=== PATIENT | male | born 1945 | race Caucasian/White ===

== ENCOUNTER 2023-12-28 20:19 | Outpatient (REF) | payer MEDICARE, SELFPAY ==
[2023-12-28 12:55] LABS: Absolute Eosinophil Count 0.29 10^3/uL (0.0-0.7); Absolute Lymphocyte Count 1.67 10^3/uL (1.2-3.4); Basophils % 0.4; Eosinophils % 1.8; HCT 39.9 % (40.0-50.0); HGB 12.6 g/dL (13.5-17.5); Immature Grans % 0.6; Lymphocytes % 10.3; MCH 27.6 pg (27.0-33.0); MCHC 31.6 % (32.0-36.0); MCV 87 fL (80-95); MPV 11.6 fL (8.0-11.0); Monocytes % 10.6; Neutrophils % 76.3; Platelet Count 245 10^3/uL (130-400); RBC 4.57 10^6/uL (4.36-5.78); RDW 14.9 % (11.8-14.1); RDW-SD 47.3 fL; WBC 16.25 10^3/uL (4.4-10.8)
[2023-12-28 12:56] LABS: Absolute Basophil Count 0.07 10^3/uL (0.0-0.2); Absolute Monocyte Count 1.72 10^3/uL (0.1-0.8)
[2023-12-28 13:05] LABS: ALT 9 U/L (16-63); AST 20 U/L (15-37); Albumin 2.2 g/dL (3.4-5.0); Alkaline Phosphatase 128 U/L (46-116); Anion Gap 10.9 mmol/L (3-11); BUN 22 mg/dL (7-18); Bilirubin, Total 0.4 mg/dL (0.2-1.0); CO2 29.1 mmol/L (21.0-32.0); CREATININE 1.3 mg/dL (0.70-1.30); Calcium 8.7 mg/dL (8.5-10.1); Chloride 103 mmol/L (98-107); Estimated GFR 56.58 (mL/min/1.73m2); Glucose 239 mg/dL (74-106); Sodium 143 mmol/L (136-145); Total Protein 7.4 g/dL (6.4-8.2)
[2023-12-28 13:15] LABS: Diff Comment Diff Reviewed; RBC Morphology Normal
[2023-12-28 19:39] LABS: Bilirubin Negative (Negative); Blood Large (Negative); Clarity Turbid (Clear); Glucose Negative (Negative); Ketones Negative (Negative); Leukocyte Esterase Large (Negative); Nitrite Negative (Negative); Specific Gravity 1.015 (1.005-1.025); Urobilinogen 0.2 mg/dL (Up to 0.2)
[2023-12-28 19:44] LABS: Bacteria Few HPF (Negative); C & S Indicated? C&S Done As Ordered; Casts Negative LPF (Negative); Crystals Negative HPF (Negative); Epithelial Cells Rare HPF (Negative); Mucus Trace (Negative); Other Cells Few Yeast (Negative); RBC >50 HPF (0-2); WBC >50 HPF (0-5)
== END 2023-12-28 20:20 | disposition home or self-care (01) ==
LOC: LBN 20:19
PROVIDERS: PCP Family Medicine; Visit Provider Family Medicine
DX: G20.A1 Parkinson's disease without dyskinesia, without mention of fluctuations (principal); R31.9 Hematuria, unspecified
CPT/HCPCS: 80053; 81003; 81015; 85025; 87086

== ENCOUNTER 2024-01-02 14:13 | Inpatient (IN) | payer OTHER, SELFPAY ==
[2024-01-02] VITALS (94 sets, daily range): BP systolic 57–157; BP diastolic 16–128; PULSE 75–188; RESP 14–38; TEMP 36.4–36.6; O2SAT 95–99
--- NOTE | 2024-01-02 14:00 | RT.EKG_ITS ---
APPROVED REPORT Exam: Resting ECG Reason for Exam: Rapid Heartbeat Patient Location: E HR:142 bpm ECG Measurements Heart Rate 142 AXIS LA 156 P -10 QRSd 128 QRS -36 QT 362 T 98 QTc 556 Conclusion Sinus tachycardia...rate> 99 Left bundle branch block...QRSd>120, broad/notched R afib/flutter, tachy Left [place] LBBB No acute ST changes
--- NOTE | 2024-01-02 14:09 | W.ED.GENAD ---
Discharge Plan Disposition Patient Disposition: Admit to [facility] Condition: Serious Discharge Details Clinical Impression: RAHEEL (acute kidney injury), UTI (urinary tract infection), Septic shock, Atrial fibrillation with RVR Primary Care Provider: John Jhaveri ED Provider: Bryce Zarco [place] Meds and New Rx's Prescriptions: No Action apixaban 5 mg tablet 5 mg PO BID carbidopa-levodopa 10-100 mg tablet 1 tab PO TID Pancreaze 10,500-35,500- 61,500 unit capsule,delayed release(DR/EC) 2 cap PO TID Rx Instructions: administer with meals and/or snacks duloxetine 20 mg capsule,delayed release(DR/EC) 20 mg PO DAILY fexofenadine 60 mg tablet 60 mg PO BID finasteride 5 mg tablet 5 mg PO DAILY insulin glargine 100 unit/mL (3 mL) insulin pen 40 unit subcut DAILY isosorbide mononitrate 30 mg tablet extended release 24 hr 30 mg PO DAILY losartan 25 mg tablet 25 mg PO DAILY pregabalin 300 mg capsule 300 mg PO BID metoprolol succinate 25 mg tablet extended release 24 hr 25 mg PO DAILY amitriptyline 10 mg tablet 10 mg PO DAILY rosuvastatin [Crestor] 40 mg tablet 40 mg PO DAILY sertraline 100 mg tablet 100 mg PO DAILY tamsulosin 0.4 mg capsule 0.4 mg PO DAILY tiotropium bromide 2.5 mcg/actuation mist 2 inh inhalation DAILY HPI General Mode of arrival: EMS. Date/Time Provider Initiated Documentation: 01/02/24 14:48. Limitations to Documentation: altered mental status. Information obtained by: EMS. HPI Narrative: Patient presenting to ED with altered mental status, A-fib with RVR. Patient currently residing at [facility]. EMS initially called transport patient here for lab and x-ray. However on their arrival to the facility he was found to be in rapid A-fib and altered although has a history of confusion and speech difficulties, unclear exactly what his baseline is. He was transferred to the ED. He is able to answer yes/no questions and denies pain or shortness of breath. Related Data Home Medications Medication Instructions Recorded Confirmed amitriptyline 10 mg tablet 10 mg PO DAILY 01/02/24 01/02/24 apixaban 5 mg tablet 5 mg PO BID 01/02/24 01/02/24 carbidopa 10 mg-levodopa 100 mg 1 tab PO TID 01/02/24 01/02/24 tablet duloxetine 20 mg capsule,delayed 20 mg PO DAILY 01/02/24 01/02/24 release fexofenadine 60 mg tablet 60 mg PO BID 01/02/24 01/02/24 finasteride 5 mg tablet 5 mg PO DAILY 01/02/24 01/02/24 insulin glargine 100 unit/mL (3 40 unit subcut DAILY 01/02/24 01/02/24 mL) subcutaneous pen isosorbide mononitrate 30 mg 30 mg PO DAILY 01/02/24 01/02/24 tablet,extended release 24 hr lipase 10,500-protease 2 cap PO TID 01/02/24 01/02/24 35,500-amylase 61,500 unit capsule,delayed rel (Pancreaze) losartan 25 mg tablet 25 mg PO DAILY 01/02/24 01/02/24 metoprolol succinate 25 mg 25 mg PO DAILY 01/02/24 01/02/24 tablet,extended release 24 hr pregabalin 300 mg capsule 300 mg PO BID 01/02/24 01/02/24 rosuvastatin 40 mg tablet (Crestor) 40 mg PO DAILY 01/02/24 01/02/24 sertraline 100 mg tablet 100 mg PO DAILY 01/02/24 01/02/24 tamsulosin 0.4 mg capsule 0.4 mg PO DAILY 01/02/24 01/02/24 tiotropium bromide 2.5 2 inh inhalation DAILY 01/02/24 01/02/24 mcg/actuation mist for inhalation Allergies Allergy/AdvReac Type Severity Reaction Status Date / Time enoxaparin [From Lovenox] Allergy Other (See Verified 01/02/24 14:48 Comment) Review of Systems Unobtainable due to mental status Exam Narrative Exam Narrative: Const: Obese male in NAD but altered. HEENT: NC/AT. Normal facial exam. Eyes: Normal conjunctiva and sclera. Neck: Supple. Trachea midline. Lungs: Normal respiratory effort. Lungs are clear. Cor: Tachy and irregular. GI: Soft. NT/ND. : Chao in place, urine appears cloudy Neuro: Awake, altered, answers yes/no. Cranial nerves II - XII grossly intact. No gross motor or sensory deficit. Ext: No C/C/E. Skin: Cool and dry with coccygeal/buttock ulcer and apparent candidal rash along buttocks and posterior thighs. Medical Decision Making [facility] with rapid A-fib and altered mental status. He was admitted to [facility] December 19 from [facility]. He is not able to provide much of a history. Denies pain or shortness of breath. He is on anticoagulation presumably for A-fib and is also status post TAVR. Initial heart rates in the 140 and initial blood pressure with a systolic greater than 100. Subsequent blood pressures with hypotension. His lungs are relatively clear. His abdomen seems benign. His urine appears very cloudy. Suspect UTI with sepsis. IV fluids ordered. Laboratory studies obtained. Chest x-ray, nasal swab, urinalysis ordered. Lopressor IV for heart rate control if we can get blood pressure a little more reasonable. Called and spoke to the patient's . She confirms DNR/DNI but reports that is not comfort measures only as per the [facility] papers. She and he are fine with fluids, antibiotics, pressors to give him a chance to recover. He reportedly was at [facility] with pneumonia, UTI, RAHEEL. Patient's laboratory studies with a white count of 19.2. Hemoglobin 12.3. Electrolytes are normal. Kidney function is 2 up from 1.3 5 days ago. Liver function is normal. First troponin is negative. Chest x-ray per my read with low lung volumes and underpenetrated. No obvious infiltrate. Radiology read concurs. EKG is rapid A-fib with left bundle branch block, no acute ST changes. Second liter of LR has been ordered. Chao has been clamped and we are waiting for urine specimen. He has not received metoprolol but his heart rate has come down with fluids. At bedside is saying he does have a right ureteral stent in place. His urinalysis is positive for UTI. Because of the report of stent and the possibility of obstruction I did obtain CT of the abdomen and pelvis. also reporting that he may have fallen over at [facility] and she has been trying to get them to scan his head because he is on thinners. He is altered likely from his urosepsis but I will obtain CT head as well. He has received 3 L of LR which is just under his 30 cc/kg bolus. He did receive 1 dose of IV metoprolol. CT of head is negative for bleed. CT of abdomen pelvis shows that the stent is in place. There is a proximal ureteral stone but the kidney appears to be decompressed with minimal hydronephrosis. He has received 2 g of IV ceftriaxone. Blood pressure and heart rate continue to bounce around. Will continue fluids, consider norepi as he has not had a ton of urine output. Definitely should be admitted to the ICU here. Case discussed at length with hospitalist. Lab Data Lab results reviewed: Yes I reviewed the patient's lab results. ECG Data Attestation: I personally reviewed and interpreted this ECG (s) as follows: Prior ECG tracings: not available for review Interpretation: see EKG Quality:SDOH Health Related Social Needs: No Data to Display Critical Care Time Critical Care Time Critical Care Time: Yes Total Critical Care Time: 75 Attestation: Upon my evaluation, this patient had a high probability of imminent or life-threatening deterioration, which required my direct attention, intervention, and personal management. I have personally provided 75 minutes of critical care time exclusive of time spent on separately billable procedures. Time includes review of laboratory data, radiology results, discussion with consultants, and monitoring for potential decompensation. Interventions were performed as documented above. PFSH All Active Problems (Updated 01/02/24 @ 19:22 by Bryce Zarco MD) Atrial fibrillation with RVR (Acute) Septic shock (Acute) UTI (urinary tract infection) (Acute) RAHEEL (acute kidney injury) (Acute) Medical History (Updated 01/02/24 @ 19:22 by Bryce Zarco MD) DVT (deep venous thrombosis) History of nephrolithiasis Atrial fibrillation CAD (coronary artery disease) Diabetes mellitus Parkinson disease Melanoma Surgical History (Updated 01/02/24 @ 15:27 by Bryce Zarco MD) S/P TAVR (transcatheter aortic valve replacement) Social History Smoking/Tobacco Use Status: Unknown Smoking risk assessment performed?: Yes Substance use type: unknown Housing: residential
[2024-01-02 14:39] LABS: Lactate 1.7 mmol/L (0.6-1.4)
[2024-01-02 14:40] LABS: Abs Immature Grans 0.13 10^3/uL (0.0-0.06); Basophils % 0.4; Eosinophils % 1.8; HGB 12.3 g/dL (13.5-17.5); Immature Grans % 0.7; Lymphocytes % 12.1; MCH 27.2 pg (27.0-33.0); MCHC 30.8 % (32.0-36.0); MCV 88 fL (80-95); Monocytes % 7.7; Neutrophils % 77.3; Platelet Count 383 10^3/uL (130-400); RBC 4.53 10^6/uL (4.36-5.78); RDW 14.7 % (11.8-14.1); RDW-SD 47.7 fL; WBC 19.19 10^3/uL (4.4-10.8)
[2024-01-02] MEDS: Lactated Ringers 1,000 ML 1000 ML IV ×3 (14:40→16:20)
--- NOTE | 2024-01-02 14:46 | DI.RAD_ITS ---
Exam(s) XR PORTABLE CHEST AP EXAM: XR PORTABLE CHEST AP CLINICAL HISTORY: AMS TECHNIQUE: 2D digital imaging was performed. COMPARISON: No exams were available for comparison FINDINGS: Exam is limited by under penetration and semi-upright technique. LUNGS: Grossly clear. No pleural abnormality seen. HEART: Enlarged. TAVR. Coronary artery stent. AORTA: Normal diameter. BONES: Unremarkable for age. Soft tissues: Unremarkable. IMPRESSION: No acute findings. DATA REPOSITORY: RADIATION DOSE DELIVERED:
[2024-01-02 14:47] LABS: Absolute Basophil Count 0.08 10^3/uL (0.0-0.2); Absolute Eosinophil Count 0.35 10^3/uL (0.0-0.7); Absolute Lymphocyte Count 2.32 10^3/uL (1.2-3.4); Absolute Monocyte Count 1.48 10^3/uL (0.1-0.8); Absolute Neutrophil Count 14.83 10^3/uL (1.2-6.7)
[2024-01-02 15:01] LABS: ALT 10 U/L (16-63); AST 25 U/L (15-37); Albumin 2.2 g/dL (3.4-5.0); Alkaline Phosphatase 149 U/L (46-116); Anion Gap 8.7 mmol/L (3-11); BUN 35 mg/dL (7-18); Bilirubin, Total 0.4 mg/dL (0.2-1.0); CO2 29.3 mmol/L (21.0-32.0); Calcium 8.8 mg/dL (8.5-10.1); Chloride 105 mmol/L (98-107); Estimated GFR 33.74 (mL/min/1.73m2); Glucose 252 mg/dL (74-106); Magnesium 2.1 mg/dL (1.8-2.4); Potassium 4.1 mmol/L (3.5-5.1); Sodium 143 mmol/L (136-145); Total Protein 7.9 g/dL (6.4-8.2); Troponin I 51 ng/L (< or =60)
[2024-01-02] MEDS: Metoprolol 5 MG/5 ML VIAL IVP (15:17)
[2024-01-02 15:47] LABS: COVID-19 PCR Negative (Negative); Influenza A PCR Negative (Negative); Influenza B PCR Negative (Negative); RSV PCR Negative (Negative)
[2024-01-02 15:59] LABS: Source Nasopharynx
[2024-01-02 16:00] LABS: Bilirubin Small (Negative); Blood Large (Negative); Clarity Cloudy (Clear); Glucose Negative (Negative); Ketones Negative (Negative); Leukocyte Esterase Large (Negative); Nitrite Negative (Negative); Specific Gravity >= 1.030 (1.005-1.025); Urobilinogen 0.2 mg/dL (Up to 0.2); pH 5.5 (5-8)
[2024-01-02 16:05] LABS: Bacteria Moderate HPF (Negative); C & S Indicated? Yes; Casts Negative LPF (Negative); Crystals Negative HPF (Negative); Epithelial Cells Rare HPF (Negative); Mucus Negative (Negative); WBC >50 HPF (0-5)
[2024-01-02] MEDS: cefTRIAXone 2 GM/50 ML BAG IVPB (16:18)
--- NOTE | 2024-01-02 16:30 | DI.CT_ITS ---
Exam(s) CT RENAL COLIC WO EXAM: CT RENAL COLIC WO CLINICAL HISTORY: urosepsis; reported stent. TECHNIQUE: Imaging Protocol: Axial computed tomography images with coronal and sagittal reformatted images were created and reviewed. COMPARISON: CR XR PORTABLE CHEST AP from 01/02/2024 FINDINGS: Exam limited by motion. Lung Bases: Respiratory motion. Dependent changes. Heart is enlarged. TAVR. Coronary artery stent and calcifications. Liver: Normal density. No measurable mass. Gallbladder and biliary tract: No radiodense calculus. No biliary ductal dilation. Pancreas: No abnormal calcifications or inflammatory process. The tail of the pancreas has been res ected. Surgical clips in the vicinity. Spleen: Normal size. Cystic lesion adjacent to fundus of the stomach could represent a gastric diverticulum. Kidneys: Normal size, contour and axis.Right ureteral stent. Mild dilatation of the right collecting system. Stones seen adjacent to upper portion of stent measuring approximately 10 millimeters. Non obstructing stones seen in both kidneys. Mild right perinephric stranding. No masses seen. Adrenal glands: No mass is seen. Lymph nodes: Within normal limits. Vasculature: Abdominal aorta non-dilated. IVC filter. Bladder: Chao catheter within bladder. No stone. Mild no evidence of mass. Bowel: No obstruction. No bowel wall thickening. Appendix normal. Moderate to increased quantity of stool. Peritoneal cavity: No ascites.No free air. No focal collection. No mesenteric inflammatory response. Reproductive organs: Prostate is enlarged. Bones: Degenerative changes in the spine. Soft Tissues: Within normal limits. IMPRESSION: Right ureteral stent. 10 millimeter stone seen adjacent to upper portion of stent mild right hydrone phrosis. Additional nonobstructing stones bilaterally. Findings called to Dr. Zarco of the emergency department. RADIATION DOSE DELIVERED: 2,106.98mGy.cm Total DLP 2,106.98mGy.cm Total DLP DATA REPOSITORY: All CT scans at this facility are submitted to the National Radiology Data Registry (NRDR) Dose Index Registry (DIR) with the [employer] (A[employer]). RADIATION OPTIMIZATION: All CT scans at this facility use at least one of these dose optimization te chniques: automated exposure control; mA and/or kV adjustment per patient size (includes targeted exa ms where dose is matched to clinical indication); or iterative reconstruction.
--- NOTE | 2024-01-02 16:45 | DI.CT_ITS ---
Exam(s) CT HEAD WO EXAM: CT HEAD WO CLINICAL HISTORY: AMS, ? fall, on thinners. TECHNIQUE: Imaging Protocol: Axial computed tomography images with coronal and sagittal reformatted images were created and reviewed COMPARISON: No exams were available for comparison FINDINGS: Exam limited by motion. There is also significant metallic artifact related to cochlear implant. Ventricles and Extra axial spaces: Normal in size and morphology for the patient's age. Hemorrhage: None. Cerebral parenchyma: No evidence of acute infarct or mass. Midline shift: None. Brainstem/Cerebellum: Normal. Calvarium: Normal. Visualized Paranasal sinuses:Clear. Mastoids: Small amount of fluid in inferior right mastoid air cells. Soft Tissues: Chronic appearing defect involving the scalp near the vertex. ORBITS: Unremarkable. PITUITARY: Normal. IMPRESSION: Limited exam due to metallic artifact and motion. No acute intracranial process. RADIATION DOSE DELIVERED: 876mGy.cm Total DLP DATA REPOSITORY: All CT scans at this facility are submitted to the National Radiology Data Registry (NRDR) Dose Index Registry (DIR) with the [employer] (ACR). RADIATION OPTIMIZATION: All CT scans at this facility use at least one of these dose optimization te chniques: automated exposure control; mA and/or kV adjustment per patient size (includes targeted exa ms where dose is matched to clinical indication); or iterative reconstruction.
[2024-01-02 17:33] LABS: Troponin I < 50 ng/L (< or =60)
--- NOTE | 2024-01-02 19:14 | HPE_ITS ---
Date of service: 01/02/24 Time of Service: 19:25 Assessment and Plan Assessment and plan (1) Septic shock: Start date: 01/02/24 Status: Acute Assessment and plan: This is a 78-year-old gentleman with recurrent UTI and now sepsis syndrome with shock most likely with urinary tract infection as source. He had did have recent stenting of his right ureter for obstructing stone and this appears to be stable. He did receive 3 L of lactated Ringer's and will continue normal saline hydration watching closely for fluid overload. His blood pressure has stabilized with fluid resuscitation and he is not requiring pressor agents. He is on Rocephin for treatment of his UTI. Urine cultures and blood cultures are pending. Patient was positive for MRSA with screening elevated appear to be a previous screen for comparison. If he is not responding to initial therapy, vancomycin can be considered for additional coverage. His tachycardia has improved with treatment of his sepsis syndrome and he does have chronic tachycardia with atrial fibrillation. He will be placed on a split dose of oral metoprolol as tolerated and for now will receive IV metoprolol as blood pressure tolerates for better heart rate control. (2) UTI (urinary tract infection): Start date: 01/02/24 Status: Acute Assessment and plan: With obstructing stone status post stenting right ureter and mild right hydronephrosis. He does have recurrent UTIs. Continue IV Rocephin and follow- up cultures adjust medical therapy as indicated. Patient was screened for MRSA and this was positive with MRSA precaution to be taken while hospitalized and in the nursing facility as indicated. Qualifiers: Encounter type: initial encounter Indwelling urinary catheter type: i ndwelling urethral catheter Urinary tract infection type: catheter-associated UTI Qualified Code(s): T83.511A - Infection and inflammatory reaction due to indwelling urethral catheter, initial encounter; N39.0 - Urinary tract infection, site not specified (3) Atrial fibrillation with RVR: Status: Chronic Assessment and plan: Usually on metoprolol succinate low-dose with intermittent IV metoprolol for heart rate control as blood pressure tolerates well for his septic shock. IV fluid resuscitation may help with tachycardia. Continue Eliquis. (4) RAHEEL (acute kidney injury): Start date: 01/02/24 Status: Acute Assessment and plan: Exacerbated with acute process now hopefully responding to IV fluid resuscitation. Trend labs. (5) Type 2 diabetes mellitus: Status: Chronic Assessment and plan: Patient usual outpatient medical therapy will be held while hospitalized and glucometer measurements with short acting insulin coverage using moderate sliding scale. Hold basal insulin for now as well. Qualifiers: Diabetes mellitus complication status: with hyperglycemia Diabetes mellitus rodent exterminator insulin use: with halfway use Qualified Code(s): E11.65 - Type 2 diabetes mellitus with hyperglycemia; Z79.4 - jail (current) use of insulin (6) CAD (coronary artery disease): Assessment and plan: Continue outpatient medical therapy as tolerated. Patient does not appear to have acute decompensation. Qualifiers: Associated angina: without angina Coronary Disease-Associated Artery/Lesion type: [place] artery [place] vs. transplanted heart: [place] heart Qualified Code(s): I25.10 - Atherosclerotic heart disease of [place] coronary artery without angina pectoris (7) Parkinson disease: Assessment and plan: Continue outpatient medical therapy as tolerated. Qualifiers: Dyskinesia presence: with dyskinesia Fluctuating manifestations: w ithout fluctuating manifestations Qualified Code(s): G20.B1 - Parkinson's disease with dyskinesia, without mention of fluctuations History of Present Illness History of Present Illness Chief Complaint: Increased confusion with recent fall and recent hospitalization Narrative: This is a 78-year-old male patient usually goes to the OR and recently was hospitalized in [facility] for pneumonia and UTI with RAHEEL. He does reside at a local senior care and did fall with this facility attempted to have patient have imaging of his head because of increased confusion. During transfer to this facility for imaging and lab, he was diverted to the ED because of tachycardia and unstable mental status status post fall. He has had no fever but has had decreased urinary output and decreased intake since his last hospitalization. He is a DNR/DNI with advanced disease including atrial fibrillation with frequent tachycardia on Eliquis which is prompting imaging of his head because of his fall as well as recent TAVR with history of CAD which has overall been stable. With his decreased intake it appears that he has had a worsening of his chronic kidney disease by labs done in the ED. He had 3 L of lactated Ringer's in the ED for rehydration and will continue on gentle IV hydration. He appears to have a UTI and recently did have a stent in his right ureter because of a stone obstructing causing minimal hydronephrosis. He was given 2 g of Rocephin IV in the ED and this will be continued with cultures have been obtained. His CT of the head was unrevealing for any acute bleed and CT of the abdomen pelvis did reveal his chronic problems with no acute processes noted. Patient does have advanced Parkinson disease and is minimally communicative appearing stiff. He was not able to give further history and that the ED physician did have a long discussion with his during his evaluation. Though the patient is a DNR/DNI, she is not opposed to aggressive treatment of reversible problems with IV hydration and even pressor agents if needed with the patient manifesting sepsis syndrome with hypotension in the ED. If he requires prolonged hospitalization or improved to medical surgical floor care rather than ICU care, he may be transferred to the OR with the OR having no ICU level beds available per discussion with the ED provider. Review of Systems Narrative: 13 point review of systems otherwise unobtainable. See ED note for review with . PFSH All Active Problems (Updated 01/03/24 @ 02:36 by John Rodriguez) Type 2 diabetes mellitus (Chronic) Atrial fibrillation with RVR (Chronic) Septic shock (Acute) UTI (urinary tract infection) (Acute) RAHEEL (acute kidney injury) (Acute) Medical History (Updated 01/03/24 @ 02:36 by John Rodriguez) DVT (deep venous thrombosis) History of nephrolithiasis Atrial fibrillation CAD (coronary artery disease) Diabetes mellitus Parkinson disease Melanoma Surgical History (Updated 01/02/24 @ 15:27 by Bryce Zarco MD) S/P TAVR (transcatheter aortic valve replacement) Social History Smoking/Tobacco Use Status: Unknown Smoking risk assessment performed?: Yes Substance use type: unknown Housing: senior care Meds Allergies and Home Medications Allergies Allergy/AdvReac Type Severity Reaction Status Date / Time enoxaparin [From Lovenox] Allergy Other (See Verified 01/02/24 14:48 Comment) Home Medications Medication Instructions Recorded Confirmed Type amitriptyline 10 mg tablet 10 mg PO DAILY 01/02/24 01/02/24 History apixaban 5 mg tablet 5 mg PO BID 01/02/24 01/02/24 History carbidopa 10 mg-levodopa 100 mg 1 tab PO TID 01/02/24 01/02/24 History tablet duloxetine 20 mg capsule,delayed 20 mg PO DAILY 01/02/24 01/02/24 History release fexofenadine 60 mg tablet 60 mg PO BID 01/02/24 01/02/24 History finasteride 5 mg tablet 5 mg PO DAILY 01/02/24 01/02/24 History insulin glargine 100 unit/mL (3 40 unit subcut DAILY 01/02/24 01/02/24 History mL) subcutaneous pen isosorbide mononitrate 30 mg 30 mg PO DAILY 01/02/24 01/02/24 History tablet,extended release 24 hr lipase 10,500-protease 2 cap PO TID 01/02/24 01/02/24 History 35,500-amylase 61,500 unit capsule,delayed rel (Pancreaze) losartan 25 mg tablet 25 mg PO DAILY 01/02/24 01/02/24 History metoprolol succinate 25 mg 25 mg PO DAILY 01/02/24 01/02/24 History tablet,extended release 24 hr pregabalin 300 mg capsule 300 mg PO BID 01/02/24 01/02/24 History rosuvastatin 40 mg tablet (Crestor) 40 mg PO DAILY 01/02/24 01/02/24 History sertraline 100 mg tablet 100 mg PO DAILY 01/02/24 01/02/24 History tamsulosin 0.4 mg capsule 0.4 mg PO DAILY 01/02/24 01/02/24 History tiotropium bromide 2.5 2 inh inhalation DAILY 01/02/24 01/02/24 History mcg/actuation mist for inhalation Exam Narrative Exam Narrative: General: Patient appears older than stated age, morbidly obese and obtunded lying in bed with his head at a 45 degree angle. He does open his eyes but does not communicate well. He has a masklike facies. He is not oriented to person, place or time. He does appear in moderate distress from his acute disease processes. HEENT: Normocephalic, coarsened facial features, eyes with pupils equal and react to light symmetrically, extraocular movement intact and sclera anicteric. Oropharynx with dry mucosa and poor dentition. Neck: Supple without JVD. Back: Not examined the patient supine. Heart: Regular rate and rhythm with quiet systolic murmur left arm border, no gallops or rubs. Lungs: Poor respiratory effort but essentially clear to auscultation anteriorly. Abdomen: Obese contour, soft and nontender to palpation no palpable hepatosplenomegaly. No guarding or rebound. Bowel sounds positive in all quadrants. Genitalia/rectal: Exam deferred. Patient does have Chao catheter in place. Extremities: Nonpitting edema lower extremities with no clubbing or cyanosis. Fair capillary refill. Skin: Pale, warm and dry. No bruising noted. Neuro: Cranial nerves II through XII appear to be grossly intact with limited cooperation from patient. Masklike facies with increased tone diffusely. Some voluntary movement with no focal motor deficits noted. No resting tremor noted. Psych: Flattened affect and appears acutely delusional with his sepsis syndrome. Manifesting no abnormal thought processes. Remote and recent memory testing not possible. Results Imaging Imaging Studies: EXAM: CT RENAL COLIC WO Date of Exam: 01/02/24 CLINICAL HISTORY: urosepsis; reported stent. TECHNIQUE: Imaging Protocol: Axial computed tomography images with coronal and sagittal reformatted images were created and reviewed. COMPARISON: CR XR PORTABLE CHEST AP from 01/02/2024 FINDINGS: Exam limited by motion. Lung Bases: Respiratory motion. Dependent changes. Heart is enlarged. TAVR. Coronary artery stent and calcifications. Liver: Normal density. No measurable mass. Gallbladder and biliary tract: No radiodense calculus. No biliary ductal dilation. Pancreas: No abnormal calcifications or inflammatory process. The tail of the pancreas has been resected. Surgical clips in the vicinity. Spleen: Normal size. Cystic lesion adjacent to fundus of the stomach could represent a gastric diverticulum. Kidneys: Normal size, contour and axis.Right ureteral stent. Mild dilatation of the right collecting system. Stones seen adjacent to upper portion of stent measuring approximately 10 millimeters. Nonobstructing stones seen in both kidneys. Mild right perinephric stranding. No masses seen. Adrenal glands: No mass is seen. Lymph nodes: Within normal limits. Vasculature: Abdominal aorta non-dilated. IVC filter. Bladder: Chao catheter within bladder. No stone. Mild no evidence of mass. Bowel: No obstruction. No bowel wall thickening. Appendix normal. Moderate to increased quantity of stool. Peritoneal cavity: No ascites.No free air. No focal collection. No mesenteric inflammatory response. Reproductive organs: Prostate is enlarged. Bones: Degenerative changes in the spine. Soft Tissues: Within normal limits. IMPRESSION: Right ureteral stent. 10 millimeter stone seen adjacent to upper portion of stent mild right hydronephrosis. Additional nonobstructing stones bilaterally. EXAM: CT HEAD WO Date of Exam: 01/02/24 CLINICAL HISTORY: AMS, ? fall, on thinners. TECHNIQUE: Imaging Protocol: Axial computed tomography images with coronal and sagittal reformatted images were created and reviewed COMPARISON: No exams were available for comparison FINDINGS: Exam limited by motion. There is also significant metallic artifact related to cochlear implant. Ventricles and Extra axial spaces: Normal in size and morphology for the patient's age. Hemorrhage: None. Cerebral parenchyma: No evidence of acute infarct or mass. Midline shift: None. Brainstem/Cerebellum: Normal. Calvarium: Normal. Visualized Paranasal sinuses:Clear. Mastoids: Small amount of fluid in inferior right mastoid air cells. Soft Tissues: Chronic appearing defect involving the scalp near the vertex. ORBITS: Unremarkable. PITUITARY: Normal. IMPRESSION: Limited exam due to metallic artifact and motion. No acute intracranial process. Labs 01/02/24 14:24 01/02/24 14:24 Labs: Laboratory Results - last 24 hr 01/02/24 01/02/24 01/02/24 14:24 14:53 15:47 WBC 19.19 H RBC 4.53 Hgb 12.3 L Hct 40.0 MCV 88 MCH 27.2 MCHC 30.8 L RDW 14.7 H Plt Count 383 MPV 11.0 Immature Gran % 0.7 Neutrophils % 77.3 Lymphocytes % 12.1 Monocytes % 7.7 Eosinophils % 1.8 Basophils % 0.4 Nucleated RBC % 0.0 Absolute Neutrophils 14.83 H Absolute Lymphocytes 2.32 Absolute Monocytes 1.48 H Absolute Eosinophils 0.35 Absolute Basophils 0.08 VBG Lactate 1.7 H Sodium 143 Potassium 4.1 Chloride 105 Carbon Dioxide 29.3 Anion Gap 8.7 BUN 35 H Creatinine 2.0 H Est GFR (CKD-EPI 2020) 33.74 Glucose 252 H Calcium 8.8 Magnesium 2.1 Total Bilirubin 0.4 AST 25 ALT 10 L Alkaline Phosphatase 149 H Troponin I 51 Total Protein 7.9 Albumin 2.2 L Urine Color Yellow Urine Clarity Cloudy Urine pH 5.5 Ur Specific [place] >= 1.030 H Urine Protein 100 H Urine Ketones Negative Urine Blood Large H Urine Nitrite Negative Urine Bilirubin Small H Urine Urobilinogen 0.2 Ur Leukocyte Esterase Large H Urine RBC 5-10 H Urine WBC >50 H Ur Epithelial Cells Rare Urine Crystals Negative Urine Bacteria Moderate Urine Casts Negative Urine Mucus Negative Ur Culture Indicated? Yes Urine Glucose Negative COVID-19 Source Nasopharynx SARS-CoV-2 (PCR) Negative Influenza Type A (PCR) Negative Influenza Type B (PCR) Negative RSV (PCR) Negative 01/02/24 17:10 WBC RBC Hgb Hct MCV MCH MCHC RDW Plt Count MPV Immature Gran % Neutrophils % Lymphocytes % Monocytes % Eosinophils % Basophils % Nucleated RBC % Absolute Neutrophils Absolute Lymphocytes Absolute Monocytes Absolute Eosinophils Absolute Basophils VBG Lactate Sodium Potassium Chloride Carbon Dioxide Anion Gap BUN Creatinine Est GFR (CKD-EPI 2020) Glucose Calcium Magnesium Total Bilirubin AST ALT Alkaline Phosphatase Troponin I < 50 Total Protein Albumin Urine Color Urine Clarity Urine pH Ur Specific [place] Urine Protein Urine Ketones Urine Blood Urine Nitrite Urine Bilirubin Urine Urobilinogen Ur Leukocyte Esterase Urine RBC Urine WBC Ur Epithelial Cells Urine Crystals Urine Bacteria Urine Casts Urine Mucus Ur Culture Indicated? Urine Glucose COVID-19 Source SARS-CoV-2 (PCR) Influenza Type A (PCR) Influenza Type B (PCR) RSV (PCR) Last Vital Signs Temp 36.4 C L 01/02/24 14:06 Pulse 96 H 01/02/24 18:51 Resp 20 01/02/24 18:51 BP 87/37 L 01/02/24 18:51 Pulse Ox 97 01/02/24 14:45 Time Spent Time spent with Patient: >75 minutes Time was spent: preparing to see the patient(eg.review tests), obtaining and/or reviewing separately otained hiistory, ordering medications,tests, procedures, referring, communicating with other health wound care center consultant, indepentently interpreting results and care coordination
[2024-01-02 21:21] LABS: MRSA PCR Positive (Negative)
--- NOTE | 2024-01-02 22:00 | NUR.NOTE ---
Nursing Note: Bennett appears to be blocked at distal end. Changed bennett bag and flushed catheter. Flow appears to be improved.
[2024-01-02 23:41] LABS: TSH (W/Ref FT4) 4.37 uIU/mL (0.36-3.74)
[2024-01-03] VITALS (48 sets, daily range): BP systolic 95–137; BP diastolic 72–106; PULSE 86–144; RESP 14–28; TEMP 36.4–37.1; O2SAT 92–99
--- NOTE | 2024-01-03 | DI.US_ITS ---
Exam(s) US RENAL EXAM: US RENAL CLINICAL HISTORY: urosepsis; r/o obstruction. TECHNIQUE: [place] scale, color and spectral Doppler were used. COMPARISON: CT CT RENAL COLIC WO from 01/02/2024 FINDINGS: Renal size in cm: Right: 14.3. Left: 11.9. Echogenicity: Normal. Hydronephrosis: Despite the right nephroureteral stent, there is persistent mild dilatation of the ri ght renal pelvis. Cyst or mass: Right renal cysts are seen. The largest measures 2.4 x 1.9 x 2.3 cm. No follow-up is recommended. Nephrolithiasis: There are echogenic foci seen bilaterally suspicious for nonobstructing stones. Other findings: The patient has a right nephroureteral stent and a Chao catheter in place. Bladder:The urinary bladder is nondistended. There is a Chao catheter in place. There is thickenin g of the wall of the urinary bladder. This may be due to nondistention. Ureteral jets: Right: Not visualized on this examination. Left: Not visualized on this examination. Prevoid vol:24 cc Postvoid vol:14 cc Prostate: Not visualized well on this examination. Renal color flow: Symmetric and within normal limits. IMPRESSION: 1. Right nephroureteral stent with mild persistent dilatation of the right renal collecting system. 2. Nonobstructing nephrolithiasis. 3. Incomplete evaluation of the urinary bladder due to poor distention. There is thickening of the w all of the bladder. This may be due to underdistended. Chronic bladder outlet obstruction or cystit is can not be excluded. DATA REPOSITORY:
[2024-01-03 00:03] LABS: FREE T4 0.99 ng/dL (0.76-1.46)
[2024-01-03] MEDS: Insulin Aspart 300 UNITS/3 ML PEN SC ×4 (01:33→18:59)
--- NOTE | 2024-01-03 01:57 | NUR.NOTE ---
Nursing Note: Attempted to give PO medication. It was unclear if pt acknowledged questions but did not appear oriented enough to follow directions at this time.
[2024-01-03] MEDS: Normal Saline 1,000 ML 125 ML IV (05:45)
[2024-01-03 05:51] LABS: HCT 37.8 % (40.0-50.0); HGB 11.7 g/dL (13.5-17.5); MCH 27.1 pg (27.0-33.0); MCV 88 fL (80-95); Platelet Count 334 10^3/uL (130-400); RBC 4.31 10^6/uL (4.36-5.78); RDW 14.7 % (11.8-14.1); RDW-SD 47.8 fL; WBC 17.85 10^3/uL (4.4-10.8)
[2024-01-03 06:15] LABS: Albumin 2.1 g/dL (3.4-5.0); BUN 30 mg/dL (7-18); CREATININE 1.6 mg/dL (0.70-1.30); Glucose 192 mg/dL (74-106); Total Protein 7.5 g/dL (6.4-8.2)
[2024-01-03 06:16] LABS: ALT 10 U/L (16-63); AST 20 U/L (15-37); Alkaline Phosphatase 138 U/L (46-116); Bilirubin, Total 0.4 mg/dL (0.2-1.0); Chloride 105 mmol/L (98-107); Potassium 4.2 mmol/L (3.5-5.1); Sodium 144 mmol/L (136-145)
[2024-01-03] MEDS: Tiotropium Bromide-Respimat 10 PUFF INH 2 PUFF IH (07:54)
[2024-01-03] MEDS: Metoprolol 5 MG/5 ML VIAL IVP ×4 (08:24→19:06)
[2024-01-03] MEDS: Normal Saline Flush 10 ML SYR IVP (10:36)
--- NOTE | 2024-01-03 11:29 | PHA.REVIEW2 ---
Pharmacy Admission Review Admission Clinical Review Admission Pharmacy Review: Septic shock (Acute) UTI (urinary tract infection) (Acute) RAHEEL (acute kidney injury) (Acute) enoxaparin [From Lovenox] Allergy (Verified 01/02/24 14:48) Other (See Comment) Resuscitation Status DNR/DNI Weight 127.142 kg Pharmacy Admission Review Renal Dosing Renal Dosing: BUN 30 mg/dL (7-18) H 01/03/24 05:18 Creatinine 1.6 mg/dL (0.70-1.30) H 01/03/24 05:18 Medications needing adjustments: Intervened (Missing patients height, called nursing this AM to add to patients chart) List of meds needing interventions: Waiting on height, does have an elevated SCr of 1.6mg/dL and BUN of 30 mg/dL. Will adjust med dosing if needed once CrCl can be calculated. Anticoagulation Anticoagulation: Hgb 11.7 g/dL (13.5-17.5) L 01/03/24 05:18 Hct 37.8 % (40.0-50.0) L 01/03/24 05:18 Plt Count 334 10^3/uL (130-400) 01/03/24 05:18 Creatinine 1.6 mg/dL (0.70-1.30) H 01/03/24 05:18 DVT Prophylaxis: Reviewed Medications: Apixaban (5mg PO BID) Relevant Labs Relevant Labs: Sodium 144 mmol/L (136-145) 01/03/24 05:18 Potassium 4.2 mmol/L (3.5-5.1) 01/03/24 05:18 Chloride 105 mmol/L (98-107) 01/03/24 05:18 Magnesium 2.0 mg/dL (1.8-2.4) 01/03/24 05:18 Electrolytes, C-Reactive P, ESR: Reviewed (Hgb decreased from 12.3 to 11.7) DM Control DM Control: Glucose 192 mg/dL (74-106) H 01/03/24 05:18 Finger Stick Blood Glucose 154 0553 DM Control: Reviewed Insulin Dosing, Diabetic Medication: Has order for sliding scale insulin Cardiac Review Cardiac Review: Troponin I < 50 ng/L (< or =60) 01/02/24 17:10 BP, HR, EF%: Reviewed (BP WNL, HR 128) QTc Review QTc: Reviewed (556 on 01/02, current meds okay) IV to PO Switch IV Medications: Reviewed (IV metoprolol PRN) Home Meds Home Med List reviewed: Intervened Relevent Home Meds Not ordered & why?: Lantus (has order for sliding scale insulin while inpatient), losartan and metoprolol (has order for IVP q15m PRN). Per H+P, states patient will be put on split dose of oral metoprolol but the only order as of right now is for the IV PRN. Reached out to provider regarding losartan and metoprolol. Two home meds are non-formulary: fexofenadine 60mg and Pancreaze. Reached out to nursing to see if these can be brought in for the patient from home. Waiting law firm receptionist back. Current Meds Current Medication Order Review: Reviewed Pharmacy Antibiotic Review Pharmacy Antibiotic Activity: C/S review and Reviewed, no change Comments: Patient is on ceftriaxone 2g q24h for UTI, day 1. WBC has decreased from 19.19 to 17.85. Blood and urine cultures are pending.
--- NOTE | 2024-01-03 12:12 | W.PM.PROGNOT ---
Date of Service Date of service: 01/03/24 Time of Service: 12:12 Assessment and Plan Assessment and plan (1) Septic shock: Start date: 01/02/24 Status: Acute Assessment and plan: secondary to urinary tract infection. his bennett catheter was not changed on admission. this has been corrected by ICU nurses. no imaging was done on his upper urinary tract. I have ordred stat US, presumably this is UTI d/t chronic indwelling bennett catheter. continue Rocephin 2 gm IV q24, however I added Diflucan as he is growing Candica albicans; he is also MRSA positive per nasal screen and his urine culture is also showing mixed gram postive organisms so I added vancomycin pending results on his urine and blood cultures. Patient is a [facility] patient and would like him transferred to the [facility] at [facility], they were called last night and did not have any bed capacity. I will ask ICU nurses to call [facility] to see if they have capacity today. (2) UTI (urinary tract infection): Start date: 01/02/24 Status: Acute Assessment and plan: as above Qualifiers: Urinary tract infection type: catheter-associated UTI Indwelling urinary catheter type: indwelling urethral catheter Encounter type: initial encounter Qualified Code(s): T83.511A - Infection and inflammatory reaction due to indwelling urethral catheter, initial encounter; N39.0 - Urinary tract infection, site not specified (3) Atrial fibrillation with RVR: Status: Chronic Assessment and plan: his afib is rapid only d/t the high demand from the sepsis and his NPO status of not getting his metoprolol. now that he is more alert, we can give him his metoprolol. (4) RAHEEL (acute kidney injury): Start date: 01/02/24 Status: Acute Assessment and plan: secondary to sepsis, continue iv fluid hydration, monitor urine output and daily BMP (5) Type 2 diabetes mellitus: Status: Chronic Assessment and plan: monitor glucose either AC/HS if he is able to eat or q6h if NPO, cover w/ moderate dose novolog sliding scale Qualifiers: Diabetes mellitus terminal makeup operator insulin use: with terminal makeup operator use Diabetes mellitus complication status: with hyperglycemia Qualified Code(s): E11.65 - Type 2 diabetes mellitus with hyperglycemia; Z79.4 - long term care phlebotomist (current) use of insulin (6) CAD (coronary artery disease): Assessment and plan: no ischemic symptoms and negative troponin I. continue home meds of metoprolol, now that his BP has stabilized I will resume his losartan and his isosorbide mononitrate tomorrow. Qualifiers: Coronary Disease-Associated Artery/Lesion type: [place] artery [place] vs. transplanted heart: [place] heart Associated angina: without angina Qualified Code(s): I25.10 - Atherosclerotic heart disease of [place] coronary artery without angina pectoris (7) Parkinson disease: Assessment and plan: Continue outpatient medical therapy as tolerated. Qualifiers: Dyskinesia presence: with dyskinesia Fluctuating manifestations: without fluctuating manifestations Qualified Code(s): G20.B1 - Parkinson's disease with dyskinesia, without mention of fluctuations Subjective Subjective Interval history since last seen: 78-year-old male resident of [facility] he has known parkinsonism, coronary artery disease, recurrent UTIs, chronic indwelling Bennett catheter, atrial fibrillation who had a fall at the senior care was sent over to [facility] yesterday for imaging was found to be in rapid atrial fibrillation was sent to the emergency department where he was found to be in septic shock likely source urinary. Unfortunately Bennett catheter was not changed yesterday blood cultures were obtained and urine cultures obtained he was started on broad-spectrum antibiotics including Rocephin 2 g. Bennett catheter has since been changed. He has been n.p.o. since last night because it has been obtunded sepsis. He was not in shock and did not require vasopressors. He has responded well to IV fluids and antibiotics.Was found to be MRSA positive for nares swab. We have added Bactroban for topical treatment. Urine cultures growing mixed gram-positive ama and Anila albicans. Exam Narrative Exam Narrative: Elderly obese white male this morning he was lethargic this afternoon he is now more alert and responsive and following commands. He appears to be in no acute distress he is oriented only to person. Lungs are clear to auscultation Heart is regular rate and rhythm no appreciable murmur rub Abdomen obese soft nondistended nontender Extremities no peripheral cyanosis or edema he has normal pedal pulses I do not find any ulcerations on his feet. Neurologic exam no facial asymmetry no dysarthric speech no focal motor deficits in his arms or legs. Objective Last Vital Signs Temp 36.7 C 01/03/24 03:51 Pulse 128 H 01/03/24 11:13 Resp 23 01/03/24 11:01 BP 137/79 01/03/24 11:13 Pulse Ox 94 01/03/24 11:01 Laboratory Results - last 24 hr 01/02/24 01/02/24 01/02/24 14:24 14:30 14:53 WBC 19.19 H RBC 4.53 Hgb 12.3 L Hct 40.0 MCV 88 MCH 27.2 MCHC 30.8 L RDW 14.7 H Plt Count 383 MPV 11.0 Immature Gran % 0.7 Neutrophils % 77.3 Lymphocytes % 12.1 Monocytes % 7.7 Eosinophils % 1.8 Basophils % 0.4 Nucleated RBC % 0.0 Absolute Neutrophils 14.83 H Absolute Lymphocytes 2.32 Absolute Monocytes 1.48 H Absolute Eosinophils 0.35 Absolute Basophils 0.08 VBG Lactate 1.7 H Sodium 143 Potassium 4.1 Chloride 105 Carbon Dioxide 29.3 Anion Gap 8.7 BUN 35 H Creatinine 2.0 H Est GFR (CKD-EPI 2020) 33.74 Glucose 252 H Calcium 8.8 Magnesium 2.1 Total Bilirubin 0.4 AST 25 ALT 10 L Alkaline Phosphatase 149 H Troponin I 51 Total Protein 7.9 Albumin 2.2 L TSH 4.37 H Free T4 0.99 Urine Color Urine Clarity Urine pH Ur Specific [place] Urine Protein Urine Ketones Urine Blood Urine Nitrite Urine Bilirubin Urine Urobilinogen Ur Leukocyte Esterase Urine RBC Urine WBC Ur Epithelial Cells Urine Crystals Urine Bacteria Urine Casts Urine Mucus Ur Culture Indicated? Urine Glucose COVID-19 Source Nasopharynx SARS-CoV-2 (PCR) Negative Influenza Type A (PCR) Negative Influenza Type B (PCR) Negative RSV (PCR) Negative MRSA (TEM-PCR) 01/02/24 01/02/24 01/02/24 15:47 17:10 19:57 WBC RBC Hgb Hct MCV MCH MCHC RDW Plt Count MPV Immature Gran % Neutrophils % Lymphocytes % Monocytes % Eosinophils % Basophils % Nucleated RBC % Absolute Neutrophils Absolute Lymphocytes Absolute Monocytes Absolute Eosinophils Absolute Basophils VBG Lactate Sodium Potassium Chloride Carbon Dioxide Anion Gap BUN Creatinine Est GFR (CKD-EPI 2020) Glucose Calcium Magnesium Total Bilirubin AST ALT Alkaline Phosphatase Troponin I < 50 Total Protein Albumin TSH Free T4 Urine Color Yellow Urine Clarity Cloudy Urine pH 5.5 Ur Specific [place] >= 1.030 H Urine Protein 100 H Urine Ketones Negative Urine Blood Large H Urine Nitrite Negative Urine Bilirubin Small H Urine Urobilinogen 0.2 Ur Leukocyte Esterase Large H Urine RBC 5-10 H Urine WBC >50 H Ur Epithelial Cells Rare Urine Crystals Negative Urine Bacteria Moderate Urine Casts Negative Urine Mucus Negative Ur Culture Indicated? Yes Urine Glucose Negative COVID-19 Source SARS-CoV-2 (PCR) Influenza Type A (PCR) Influenza Type B (PCR) RSV (PCR) MRSA (TEM-PCR) Positive A 01/03/24 05:18 WBC 17.85 H RBC 4.31 L Hgb 11.7 L Hct 37.8 L MCV 88 MCH 27.1 MCHC 31.0 L RDW 14.7 H Plt Count 334 MPV 11.0 Immature Gran % Neutrophils % Lymphocytes % Monocytes % Eosinophils % Basophils % Nucleated RBC % Absolute Neutrophils Absolute Lymphocytes Absolute Monocytes Absolute Eosinophils Absolute Basophils VBG Lactate Sodium 144 Potassium 4.2 Chloride 105 Carbon Dioxide 29.0 Anion Gap 10.0 BUN 30 H Creatinine 1.6 H Est GFR (CKD-EPI 2020) 44.10 Glucose 192 H Calcium 9.0 Magnesium 2.0 Total Bilirubin 0.4 AST 20 ALT 10 L Alkaline Phosphatase 138 H Troponin I Total Protein 7.5 Albumin 2.1 L TSH Free T4 Urine Color Urine Clarity Urine pH Ur Specific [place] Urine Protein Urine Ketones Urine Blood Urine Nitrite Urine Bilirubin Urine Urobilinogen Ur Leukocyte Esterase Urine RBC Urine WBC Ur Epithelial Cells Urine Crystals Urine Bacteria Urine Casts Urine Mucus Ur Culture Indicated? Urine Glucose COVID-19 Source SARS-CoV-2 (PCR) Influenza Type A (PCR) Influenza Type B (PCR) RSV (PCR) MRSA (TEM-PCR) Time Spent with Patient Time Spent with Patient: 35-49 minutes Time was spent: preparing to see the patient(eg.review tests), ordering medications,tests, procedures, referring, communicating with other health animal care worker (Dr. Rodriguez), indepentently interpreting results, counseling the patient (patient's ) and care coordination
--- NOTE | 2024-01-03 13:18 | PDOC.CMIN ---
Date of service: 01/03/24 Time of Service: 13:18 Care Management Initial Assmt Initial Assessment REASON FOR HOSPITALIZATION:: sepsis, RAHEEL PREVIOUS FUNCTIONAL STATUS/SOCIAL/FAMILY SUPPORTS:: Patrick was admitted from [facility]. He was transferred there for short term rehab following a hospital stay in [place], [place]. Patrick is and lives in [facility] with his Fozia. Between them they have 6 children; some are close and supportive, others are not. Patrick had Parkinson's Disease and had been falling at home prior to his stay at [facility]. He uses a walker for ambulatory assistance. He had been receiving home health services for nursing and PT but hey were discontinued shortly before his hospitalization. Patrick is 100% [facility] connected and Kari would like him transferred to [place] as soon as a bed is available. Per Kari, he is first on the list. CURRENT FUNCTIONAL STATUS:: Patrick was lying in bed in the ICU when CM met with him. He was not able to engage in meaningful conversation with CM. CM did speak to his Kari who shared some of Patrick's history. She reported that he was diagnosed with Parkinson's Disease about 10 years ago but had essential tremors for many years before that. He also has diabetes and is now showing signs of dementia. Kari informed CM that recently Patrick had been complaining of vertigo and had been using his walker more frequently. She expressed a desire to have Patrick transferred to the [facility] at [facility] [[email or web address]], which was relayed by CM to the provider. There were no beds available last evening when he was admitted. ADVANCE DIRECTIVES:: not on file Has patient been provided with info about the portal/API?: Yes Did the patient sign up for the portal?: No CODE STATUS:: DNR/DNI INSURANCE COVERAGE / FINANCIAL ISSUES:: VA primary with [facility] Medicare replacement as secondary CURRENT HOME/COMMUNITY SERVICES/EQUIPMENT:: currently at longterm facility PRIMARY CARE PHYSICIAN:: John Jhaveri POTENTIAL DISCHARGE NEEDS:: return to [facility] vs transfer to [facility] [[email or web address] or [facility] PATIENT/FAMILY EDUCATION NEEDS:: Review of discharge instructions, limitations, follow up plan, discuss Ask Me Three ANTICIPATED BARRIERS TO DISCHARGE:: bed availability TRANSPORTATION:: via facility wheelchair van PLAN:: Anticipate Patrick will either return to [facility] when medically stable or be transferred to [facility] or [facility], if medically unstable. CM will follow and continue to assess for discharge planning concerns. PFSH All Active Problems (Updated 01/03/24 @ 02:36 by John Rodriguez) Type 2 diabetes mellitus (Chronic) Atrial fibrillation with RVR (Chronic) Septic shock (Acute) UTI (urinary tract infection) (Acute) RAHEEL (acute kidney injury) (Acute) Medical History (Updated 01/03/24 @ 02:36 by John Rodriguez) DVT (deep venous thrombosis) History of nephrolithiasis Atrial fibrillation CAD (coronary artery disease) Diabetes mellitus Parkinson disease Melanoma Surgical History (Updated 01/02/24 @ 15:27 by Bryce Zarco MD) S/P TAVR (transcatheter aortic valve replacement) Social History Smoking/Tobacco Use Status: Unknown Smoking risk assessment performed?: Yes Substance use type: unknown Housing: prison SDOH(Care Management) Screening Will the Patient Participate in the Screening?: Unable to obtain
[2024-01-03] MEDS: Mupirocin 2% Oint. 22 GM TUBE TP (14:43)
[2024-01-03] MEDS: Lidocaine 2% Jelly 6 ML SYR (15:39)
[2024-01-03] MEDS: LORazepam 2 MG/ML VIAL 0.5 MG IVP (17:27)
[2024-01-03] MEDS: cefTRIAXone 2 GM/50 ML BAG IVPB (17:28)
[2024-01-03] MEDS: VANCOMYCIN/WATER (PEG) 2 GM/400 ML BAG IVPB (18:59)
--- NOTE | 2024-01-03 20:28 | RESPIRATORY ---
Family member has brought patient's HU called [employer] has Auto-CPAP min 13 and Max. 20 cm H2O at beside. RT has inspected and it is in good condition to go. DME is unknown at this time.
[2024-01-04] VITALS (61 sets, daily range): BP systolic 94–165; BP diastolic 62–133; PULSE 49–150; RESP 12–35; TEMP 36.2–36.7; O2SAT 82–113
[2024-01-04] MEDS: Insulin Aspart 300 UNITS/3 ML PEN SC ×4 (00:31→18:46)
[2024-01-04] MEDS: Normal Saline 1,000 ML 125 ML IV (03:45)
[2024-01-04 04:57] LABS: Vancomycin, Random 21.7 ug/mL
[2024-01-04 07:40] LABS: Vancomycin, Random 17.4 ug/mL
[2024-01-04] MEDS: Tiotropium Bromide-Respimat 10 PUFF INH 2 PUFF IH (07:56)
[2024-01-04] MEDS: DULoxetine 20 MG CAP PO (08:08)
[2024-01-04] MEDS: Normal Saline Flush 10 ML SYR IVP ×2 (08:08→21:46)
[2024-01-04] MEDS: Isosorbide Mononitrate 30 MG TABCR PO (08:09)
[2024-01-04] MEDS: Pregabalin 100 MG CAP 300 MG PO (08:09)
[2024-01-04] MEDS: Sertraline 100 MG TAB PO (08:09)
[2024-01-04] MEDS: Tamsulosin 0.4 MG CAPCR PO (08:09)
[2024-01-04] MEDS: Apixaban 5 MG TAB PO ×2 (08:09→21:45)
[2024-01-04] MEDS: Creon, Lipase 24,000 CAPCR 2 CAP PO ×2 (08:09→14:14)
[2024-01-04] MEDS: Finasteride 5 MG TAB PO (08:09)
[2024-01-04] MEDS: VANCOMYCIN/WATER (PEG) 1 GM/200 ML BAG IV (09:03)
[2024-01-04] MEDS: Metoprolol 12.5 MG TAB PO ×2 (10:26→12:50)
--- NOTE | 2024-01-04 10:48 | CMPROGNOTE_ITS ---
Date of service: 01/04/24 Time of Service: 10:48 Care Management Progress Note Progress Note Text Progress Note Text: S/O: Patrick was lying in bed when CM met with him; he was unable to engage in the conversation, although his and son were present. CM discussed attempts made to contact the transfer center today, as they have requested transfer to the [place]. Per family he is 100% service connected, and receives all of his care at the [place]. They provided contact information for his Oncologist at the [place]; Ailyn Salinas ([phone]), and his VA nonfarm animal caretaker, Carmen Hernández ([phone]). CM will relay this information to the provider. CM discussed system barriers, as the route for transfer is through the transfer center. CM will continue to attempt to reach the transfer center at the [place], as requested. CM discussed discharge considerations; Fozia and her son identified [facility] and [facility] are two [place] contracted facilities that they would like referrals to be sent to. CM explained that referrals can be sent, but if there is no bed offer when he is medically ready for discharge, he will return to [facility], unless he is able to return home. Fozia expressed understanding, and does not feel that he could come home in his current condition. Referrals will be sent once he is able to be evaluated by PT. CM will continue to follow. A: Patrick is a 78 year old male admitted to [facility] on 01/02/24 for septic shock. P: Anticipate Patrick will either return to [facility] when medically stable or be transferred to [facility] or [facility], if medically unstable. CM will follow and continue to assess for discharge planning concerns. SDOH(Care Management) Screening Will the Patient Participate in the Screening?: Unable to obtain
--- NOTE | 2024-01-04 11:58 | W.PM.PROGNOT ---
Date of Service Date of service: 01/04/24 Time of Service: 11:58 Assessment and Plan Assessment and plan (1) Septic shock: Start date: 01/02/24 Status: Acute Assessment and plan: Presumed source is urinary tract infection as he had recent instrumentation including right ureteral stent. So far blood cultures no growth to date. Urine culture growing Anila albicans. Patient remains on Rocephin 2 g IV daily along with Diflucan. Vancomycin has been discontinued as there is no evidence for systemic staph infection. He is colonized with MRSA and is currently on mupirocin ointment to nares and finger tips Although patient is hemodynamically stable and has not required vasopressors he does require more aggressive treatment of his atrial fibrillation rate and therefore will remain in the intensive care unit for diltiazem IV. Critical care time spent interviewing and examining the patient, reviewing studies, discussing case with patient's nurse and consulting physicians was 45 minutes (2) UTI (urinary tract infection): Start date: 01/02/24 Status: Acute Assessment and plan: as above Qualifiers: Urinary tract infection type: catheter-associated UTI Indwelling urinary catheter type: indwelling urethral catheter Encounter type: initial encounter Qualified Code(s): T83.511A - Infection and inflammatory reaction due to indwelling urethral catheter, initial encounter; N39.0 - Urinary tract infection, site not specified (3) Atrial fibrillation with RVR: Status: Chronic Assessment and plan: uncontrolled. begin diltiazem drip and adjust his po lopressor dose; continue apixaban (4) RAHEEL (acute kidney injury): Start date: 01/02/24 Status: Acute Assessment and plan: 2nd to sepsis, improivng w/ iv hydration. monitor urine output, daily BMP (5) Type 2 diabetes mellitus: Status: Chronic Assessment and plan: Monitor blood sugars ACHS cover with sliding scale insulin and basal insulin. Qualifiers: Diabetes mellitus [facility] insulin use: with [facility] use Diabetes mellitus complication status: with hyperglycemia Qualified Code(s): E11.65 - Type 2 diabetes mellitus with hyperglycemia; Z79.4 - building coordinator (current) use of insulin (6) CAD (coronary artery disease): Assessment and plan: no ischemic symptoms and negative troponin I. continue home meds of metoprolol, now that his BP has stabilized isosorbide mononitrate and losartan restarted Qualifiers: Coronary Disease-Associated Artery/Lesion type: [place] artery [place] vs. transplanted heart: [place] heart Associated angina: without angina Qualified Code(s): I25.10 - Atherosclerotic heart disease of [place] coronary artery without angina pectoris (7) Parkinson disease: Assessment and plan: Continue outpatient medical therapy as tolerated. Qualifiers: Dyskinesia presence: with dyskinesia Fluctuating manifestations: without fluctuating manifestations Qualified Code(s): G20.B1 - Parkinson's disease with dyskinesia, without mention of fluctuations Subjective Subjective Interval history since last seen: Patrick is a little more somnolent this morning. He apparently was medicated last night for agitation. I discussed his case with his family. Apparently he had ureteral stent placed couple days before he was admitted to [facility] (this was done at [facility], [place], [place]). I spoke w/ his son, who informed me that he and his brother have noticed some cognitive decline since last August that was signifcant including the patient not recalling the name of one of his grandson's. But otherwise Patrick had been doing well at home and able to recognize family members faces, converse with people and interact appropriately. His would like him to be transferred to [facility]. Trina, post acute care registered nurse has placed calls to [facility] and could not get through the tranfer center but she did leave message w/ one of the care managers at [facility]. When Patrick is awake he does not seem to be in any pain and is not dyspneic. Exam Narrative Exam Narrative: Obese male who is somnolent but awakens easily. He opens his eyes smiles his son and . But does not remain engaged in conversation. No facial asymmetry, speech is somewhat thick but when I have repeated him self he is able to make his words understood. Neck is supple no JVD Lungs are clear to auscultation Heart is irregular irregular and tachycardic rhythm appears to be atrial fibrillation at a rapid rate in the 140s. Abdomen is obese soft and nontender he has scars from previous laparotomy wounds that are well-healed. Lower extremities no peripheral cyanosis or edema Objective Last Vital Signs Temp 36.2 C L 01/04/24 08:30 Pulse 136 H 01/04/24 09:02 Resp 12 01/04/24 09:00 BP 140/62 01/04/24 09:02 Pulse Ox 82 L 01/04/24 09:02 Laboratory Results - last 24 hr 01/04/24 01/04/24 04:28 07:05 Random Vancomycin 21.7 17.4 Time Spent with Patient Time Spent with Patient: 35-49 minutes Time was spent: preparing to see the patient(eg.review tests), ordering medications,tests, procedures, referring, communicating with other health behavioral health care coordinator, indepentently interpreting results, counseling the patient (Including and son) and care coordination
[2024-01-04] MEDS: Lactated Ringers 1,000 ML 125 ML IV ×2 (12:40→20:42)
[2024-01-04] MEDS: Mupirocin 2% Oint. 22 GM TUBE TP ×2 (12:49→21:46)
[2024-01-04] MEDS: dilTIAZem 25 MG/5 ML VIAL 20 MG IVP (12:50)
[2024-01-04] MEDS: dilTIAZem 125 MG in Normal Saline 100 ML IV (12:56)
--- NOTE | 2024-01-04 15:01 | CHAPLAIN ---
I visited with Patrick and his , Kari, and one of his sons(?). Patrick was trying to get the blood pressure cuff off and Kari said he's been planning his great escape. Patrick spoke a bit, but it was difficult to understand what he said. According to Care Management notes, he [facility], and Kari would like him to be transferred to the [facility] in [facility]. I explained my role and offered support.
[2024-01-04] MEDS: Metoprolol 12.5 MG TAB 25 MG PO (17:24)
[2024-01-04] MEDS: cefTRIAXone 2 GM/50 ML BAG IVPB (17:24)
[2024-01-04] MEDS: Amitriptyline 10 MG TAB PO (21:45)
[2024-01-05] VITALS (43 sets, daily range): BP systolic 94–130; BP diastolic 48–111; PULSE 49–145; RESP 13–30; TEMP 36–36.2; O2SAT 92–98
[2024-01-05] MEDS: Insulin Aspart 300 UNITS/3 ML PEN SC ×3 (01:07→11:45)
[2024-01-05] MEDS: Metoprolol 12.5 MG TAB 25 MG PO ×3 (01:08→15:47)
[2024-01-05] MEDS: Lactated Ringers 1,000 ML 125 ML IV (04:18)
[2024-01-05 06:16] LABS: Abs Immature Grans 0.11 10^3/uL (0.0-0.06); Absolute Eosinophil Count 0.25 10^3/uL (0.0-0.7); Absolute Lymphocyte Count 1.59 10^3/uL (1.2-3.4); Absolute Monocyte Count 1.13 10^3/uL (0.1-0.8); Basophils % 0.4; Eosinophils % 1.6; HCT 38.4 % (40.0-50.0); Immature Grans % 0.7; Lymphocytes % 10.1; MCH 27.2 pg (27.0-33.0); MCHC 31.3 % (32.0-36.0); MCV 87 fL (80-95); MPV 11.3 fL (8.0-11.0); Monocytes % 7.2; Platelet Count 300 10^3/uL (130-400); RBC 4.41 10^6/uL (4.36-5.78); RDW 14.8 % (11.8-14.1); RDW-SD 47.6 fL; WBC 15.75 10^3/uL (4.4-10.8)
[2024-01-05 06:22] LABS: Absolute Basophil Count 0.06 10^3/uL (0.0-0.2)
[2024-01-05 06:26] LABS: AST 17 U/L (15-37); Albumin 1.8 g/dL (3.4-5.0); Alkaline Phosphatase 152 U/L (46-116); Anion Gap 11.2 mmol/L (3-11); BUN 28 mg/dL (7-18); Bilirubin, Total 0.3 mg/dL (0.2-1.0); CO2 24.8 mmol/L (21.0-32.0); CREATININE 1.6 mg/dL (0.70-1.30); Calcium 8.7 mg/dL (8.5-10.1); Chloride 105 mmol/L (98-107); Glucose 237 mg/dL (74-106); Potassium 4.3 mmol/L (3.5-5.1); Sodium 141 mmol/L (136-145); Total Protein 7.1 g/dL (6.4-8.2)
[2024-01-05 06:37] LABS: ALT 6 U/L (16-63)
[2024-01-05 06:46] LABS: Procalcitonin 0.2 ng/mL
[2024-01-05] MEDS: Tiotropium Bromide-Respimat 10 PUFF INH 2 PUFF IH (08:23)
[2024-01-05] MEDS: Isosorbide Mononitrate 30 MG TABCR PO (08:29)
[2024-01-05] MEDS: Pregabalin 50 MG CAP 150 MG PO (08:31)
[2024-01-05] MEDS: Sertraline 100 MG TAB PO (08:32)
[2024-01-05] MEDS: Apixaban 5 MG TAB PO (08:33)
[2024-01-05] MEDS: DULoxetine 20 MG CAP PO (08:33)
[2024-01-05] MEDS: Finasteride 5 MG TAB PO (08:34)
[2024-01-05] MEDS: Creon, Lipase 24,000 CAPCR 2 CAP PO (08:36)
[2024-01-05] MEDS: Tamsulosin 0.4 MG CAPCR PO (08:36)
--- NOTE | 2024-01-05 08:42 | NUR.NOTE ---
RN calls pharmacy for delivery of Diltiazem so that drip can be restarted. Heart rate is fluctuating from 120-140s.Nursing Note:
--- NOTE | 2024-01-05 09:28 | IN_ITS ---
PT Notes Visit Reasons: Septic Shock Inpatient Physical Therapy Evaluation Date: 01/05/24 Referring Doctor: Dr. Jones PT Orders: PT CONSULT: extended stay, weakness, exacerbation of chronic condition Precautions: Droplet Patient Profile/Admitting Diagnosis: Patrick was admitted 01/02/24 from [facility]. He was transferred there for short term rehab following a hospital stay in [place], [place]. He presented to ED after a fall at rehab, and was admitted to ICU with septic shock, UTI and afib. Social History/Home Situation: Patrick is and lives in [facility] with his Fozia. Between them they have 6 children; some are close and supportive, others are not. Patrick has Parkinson's Disease and had been falling at home prior to his stay at [facility]. He uses a walker for ambulatory assistance. He had been receiving home health services for nursing and PT but they were discontinued shortly before his hospitalization. Equipment Owned/DME: unable to determine Subjective: Patrick is alert at time of consultation, but history is difficult to obtain due to garbled speech. Does report back pain from surgery 2 days ago. Objective: General Observation: Resting in bed with IV in RUE, catheter, telemetry and intermittent compression to bilat LEs. Mental Status: Alert. ? orientation; difficult to assess due to speech impairments. Able to follow simple commands with visual and tactile cues. Pain: unable to quantify. Reports back pain, worse with movement ROM: Right Upper Extremity: WFL. Demonstrates full shoulder flexion, full elbow motion. Left Upper Extremity: WFL. Demonstrates full shoulder flexion, full elbow motion. Right Lower Extremity: Hip flexion allows 60* in supine assessment. Knee motion 0-90*. Ankle motion WFL. Left Lower Extremity: Hip flexion allows 80* in supine assessment. Knee motion 0-90*. Ankle motion WFL. Strength: Right Upper Extremity: Shoulder flexion 3/5 or greater. Biceps 4/5. Triceps 4- /5. Left Upper Extremity: Shoulder flexion 3/5 or greater. Biceps 4+/5. Triceps 4+/5. Right Lower Extremity: Hip flexion 3-/5. Quads 3/5 or greater. Ankle DF 3/5 or greater. Left Lower Extremity: Hip flexion 3-/5. Quads 3/5 or greater. Ankle DF 3/5 or greater. Bed Mobility/Transfers: dependent for all bed mobility supine-sit: able to perform partial transfer with max A x 2. Discontinued due to increasing back pain. Patient able to participate initially, but as he approaches sitting position, has increasing pain. Requires max A x 2 to return to supine, then max A x 2 to scoot in bed. Gait: unable Balance: Static Sitting: unable Dynamic Sitting: unable Static Standing: unable Dynamic Standing: unable Special Tests: Mobility Limitations Standardized Measure [facility] AM-PAC 6 clicks Basic Mobility Inpatient Short Form: Raw Score: 7 CMS Score: 92% impairment Informed Consent/Education: Patient instructed in purpose of PT consult and plan of care. Treatment: Initial Evaluation (27574) Therapeutic Exercises ([id number]) Attempted instruction in bed exercises. Patient able to complete ankle pumps x 10, then falls asleep during completion. Easily aroused and instructed in quad sets, but unable to complete due to sleepiness. Assessment: Patient is a 78 year old male referred to physical therapy services with the diagnosis of weakness with extended hospital stay. Patient presents with severe mobility impairments. He has significant pain with attempts to transfer today, and limited participation in bed exercises due to fatigue. He requires skilled PT intervention to maximize participation in transfers and imparove overall mobility. Anticipate transition back to SNF once medically stable due to the severity of patient's mobility impairments. He currently demonstrates the following impairment level findings: 1. decreased LE strength 2. back pain 3. decreased activity tolerance Impairments are contributing to the following functional limitations: 1. unable to transfer supine -sit independently 2. unable to ambulate 3. unable to tolerate strengthening activities to facilitate improved LE strength and ease of transfers 4. unable to stand Patient is assessed a Moderate [id number] complexity based on the following: History: Patrick is a 78 year old male with chronic mobility impairments, hospitalized in ICU setting for management of septic shock and UTI, which were diagnosed after a fall at SNF. He has a history of falls and underlying DM and PD as complicating factors. Examination: functional limitations as noted above Presentation: evolving Decision Making: moderate complexity Goals: Goals X1 week 1. Supine-Sit : min A x 1 2. Sit-Supine : min A x 1 3. Sit-Stand : min A x 1 4. Stand-Sit : min A x 1 5. Bed-Chair : min A x 1 with FWW 6. Chair-Bed : min A x 1 with FWW 7. Gait : min A x 1 with FWW x 20' Plan of Care/Treatment Plan: 1-2x/day, 7 days/week x 1 week. Plan of care has been reviewed with the ELECTRICIAN TECHNICIAN providing the service under Physical Therapy direction. Initiate Physical Therapy intervention for strengthening, bed mobility, transfers, gait, stairs, balance training, use of assistive device. DISCHARGE RECOMMENDATIONS: SNF for continued rehabilitation TREATMENT CODE/TIME: (45414) Myranda Jalloh, PT, DPT [facility] All Active Problems (Updated 01/03/24 @ 02:36 by John Rodriguez) Type 2 diabetes mellitus (Chronic) Atrial fibrillation with RVR (Chronic) Septic shock (Acute) UTI (urinary tract infection) (Acute) RAHEEL (acute kidney injury) (Acute) Medical History (Updated 01/03/24 @ 02:36 by John Rodriguez) DVT (deep venous thrombosis) History of nephrolithiasis Atrial fibrillation CAD (coronary artery disease) Diabetes mellitus Parkinson disease Melanoma Surgical History (Updated 01/02/24 @ 15:27 by Bryce Zarco MD) S/P TAVR (transcatheter aortic valve replacement)
[2024-01-05] MEDS: dilTIAZem 60 MG TAB PO ×2 (09:56→14:29)
[2024-01-05] MEDS: dilTIAZem 25 MG/5 ML VIAL 20 MG IVP (09:58)
[2024-01-05] MEDS: Normal Saline Flush 10 ML SYR IVP (10:04)
[2024-01-05] MEDS: Mupirocin 2% Oint. 22 GM TUBE TP ×2 (11:28→13:49)
--- NOTE | 2024-01-05 12:26 | W.PM.PROGNOT ---
Date of Service Date of service: 01/05/24 Time of Service: 12:26 Assessment and Plan Assessment and plan (1) Septic shock: Start date: 01/02/24 Status: Acute Assessment and plan: Presumed source is urinary tract infection as he had recent instrumentation including right ureteral stent. So far blood cultures no growth to date. Urine culture growing Anila albicans. Patient remains on Rocephin 2 g IV daily along with Diflucan. Vancomycin has been discontinued as there is no evidence for systemic staph infection. He is colonized with MRSA and is currently on mupirocin ointment to nares and finger tips Although patient is hemodynamically stable and has not required vasopressors he does require more aggressive treatment of his atrial fibrillation rate and therefore will remain in the intensive care unit for diltiazem IV. Patient will remain in ICU while we workup his dysarthric speech and control his atrial fibrillation rate. I will ask for an RN IV THERAPY consult in addition to his current physical therapy consult. Per nursing staff he had no trouble swallowing his pills. We will obtain a CT scan of his head to see if there has been any job change crew member his admission CT scan. He has an implanted cochlear implant which may prevent us from getting an MRI scan on Sunday. Critical care time spent interviewing and examining the patient, reviewing studies, discussing case with patient's nurse and consulting physicians was 45 minutes (2) UTI (urinary tract infection): Start date: 01/02/24 Status: Acute Assessment and plan: as above Qualifiers: Urinary tract infection type: catheter-associated UTI Indwelling urinary catheter type: indwelling urethral catheter Encounter type: initial encounter Qualified Code(s): T83.511A - Infection and inflammatory reaction due to indwelling urethral catheter, initial encounter; N39.0 - Urinary tract infection, site not specified (3) Atrial fibrillation with RVR: Status: Chronic Assessment and plan: uncontrolled.resume diltiazem drip and adjust his po lopressor dose; continue apixaban add oral diltiazem in an attempt to wean off diltiazem drip (4) RAHEEL (acute kidney injury): Start date: 01/02/24 Status: Acute Assessment and plan: 2nd to sepsis, improivng w/ iv hydration. monitor urine output, daily BMP (5) Type 2 diabetes mellitus: Status: Chronic Assessment and plan: Monitor blood sugars ACHS cover with sliding scale insulin and basal insulin. Qualifiers: Diabetes mellitus computer systems consultant insulin use: with assisted use Diabetes mellitus complication status: with hyperglycemia Qualified Code(s): E11.65 - Type 2 diabetes mellitus with hyperglycemia; Z79.4 - senior facilities manager (current) use of insulin (6) CAD (coronary artery disease): Assessment and plan: no ischemic symptoms and negative troponin I. continue home meds of metoprolol, now that his BP has stabilized isosorbide mononitrate and losartan restarted Qualifiers: Coronary Disease-Associated Artery/Lesion type: [place] artery [place] vs. transplanted heart: [place] heart Associated angina: without angina Qualified Code(s): I25.10 - Atherosclerotic heart disease of [place] coronary artery without angina pectoris (7) Parkinson disease: Assessment and plan: Continue outpatient medical therapy as tolerated. Qualifiers: Dyskinesia presence: with dyskinesia Fluctuating manifestations: without fluctuating manifestations Qualified Code(s): G20.B1 - Parkinson's disease with dyskinesia, without mention of fluctuations (8) Dysarthria: Status: Acute Assessment and plan: RN IV THERAPY consult and repeat CT head looking for any changes of CVA Subjective Subjective Interval history since last seen: Patient is more alert and interactive w/ staff however it is now apparent that his speech is clearly dysarthric, patient's indicated that this is not his normal speech. She also volunteers information that two days prior to his admission his right leg became rather heavy and he was having trouble moving this. Patient went into afib w/ RVR yesterday but responded to diltiazem drip and rate was brought under control yesterday. This morning he was off his diltiazem drip but went back up into the 140's but has responded to dilitazem bolus 20 mg. I will start him on oral diltiazem. Exam Narrative Exam Narrative: That he is awake he is alert and responds to commands he attempts to converse with people however his speech is very dysarthric but with effort he is able to make his wishes known. Lungs are clear to auscultation Heart is irregularly irregular slightly tachycardic Abdomen is obese soft and nontender Chao catheter draining clear yellow urine Neuro exam no obvious facial droop however he has a weak gag reflex to almost no gag reflex. Full extraocular motions intact speech is very dysarthric motor exam is able to raise both arms over his head he has a fairly good hand grasp although the right seems slightly weaker compared to the left and he is right-handed he is unable to hold his right leg up against gravity. When I had him hold his arms up in the ER and closes eyes there was a drift in his right arm. I could not elicit a Babinski response on either foot. He is able to flex at the right hip and knee and withdraw his leg but as a said he is unable to hold the right leg up against gravity however is also weak on the left leg and had trouble following that up against gravity so it is unclear as to whether this is generalized weakness or focal paresis. Objective Last Vital Signs Temp 36.2 C L 01/05/24 08:12 Pulse 50 L 01/05/24 11:26 Resp 13 01/05/24 11:26 BP 94/79 L 01/05/24 11:26 Pulse Ox 96 01/05/24 11:26 Laboratory Results - last 24 hr 01/05/24 05:50 WBC 15.75 H RBC 4.41 Hgb 12.0 L Hct 38.4 L MCV 87 MCH 27.2 MCHC 31.3 L RDW 14.8 H Plt Count 300 MPV 11.3 H Immature Gran % 0.7 Neutrophils % 80.0 Lymphocytes % 10.1 Monocytes % 7.2 Eosinophils % 1.6 Basophils % 0.4 Nucleated RBC % 0.0 Absolute Neutrophils 12.60 H Absolute Lymphocytes 1.59 Absolute Monocytes 1.13 H Absolute Eosinophils 0.25 Absolute Basophils 0.06 Sodium 141 Potassium 4.3 Chloride 105 Carbon Dioxide 24.8 Anion Gap 11.2 H BUN 28 H Creatinine 1.6 H Est GFR (CKD-EPI 2020) 44.10 Glucose 237 H Calcium 8.7 Total Bilirubin 0.3 AST 17 ALT 6 L Alkaline Phosphatase 152 H Total Protein 7.1 Albumin 1.8 L Procalcitonin 0.2 Time Spent with Patient Time Spent with Patient: 35-49 minutes Time was spent: preparing to see the patient(eg.review tests), obtaining and/or reviewing separately otained hiistory, ordering medications,tests, procedures, referring, communicating with other health out of school hours care worker, indepentently interpreting results, counseling the patient (Family including son and ) and care coordination
--- NOTE | 2024-01-05 12:30 | DI.CT_ITS ---
Exam(s) CT HEAD - STROKE PROTOCOL EXAM: CT HEAD - STROKE PROTOCOL CLINICAL HISTORY: dysarthric speech. TECHNIQUE: Imaging Protocol: Axial computed tomography images with coronal and sagittal reformatted images were created and reviewed COMPARISON: No exams were available for comparison FINDINGS: Streak artifact from right cochlear implant. Exam limited by motion artifact mainly on the lower lady ges. Ventricles and Extra axial spaces: Normal in size and morphology for the patient's age. Hemorrhage: None. Cerebral parenchyma: No evidence of acute infarct or mass. Mild atrophy. Midline shift: None. Brainstem/Cerebellum: Normal. Calvarium: Normal. Visualized Paranasal sinuses:Clear. Mastoids: Clear. Soft Tissues: Chronic scalp defect. ORBITS: Unremarkable. PITUITARY: Not enlarged. IMPRESSION: No acute intracranial process. RADIATION DOSE DELIVERED: Total DLP DATA REPOSITORY: All CT scans at this facility are submitted to the National Radiology Data Registry (NRDR) Dose Index Registry (DIR) with the [employer] (ACR). RADIATION OPTIMIZATION: All CT scans at this facility use at least one of these dose optimization te chniques: automated exposure control; mA and/or kV adjustment per patient size (includes targeted exa ms where dose is matched to clinical indication); or iterative reconstruction.
[2024-01-05] MEDS: Normal Saline - Diluent 50 ML VIAL IJ (13:10)
--- NOTE | 2024-01-05 13:10 | NUR.NOTE ---
Patient now in radiology department undergoing CT of head.Nursing Note:
[2024-01-05] MEDS: Omnipaque 350 MG/ML 100 ML BTL 85 ML IJ (13:11)
--- NOTE | 2024-01-05 13:20 | DI.VRAD_ITS ---
PROCEDURE INFORMATION: Exam: CT Head Without Contrast Exam date and time: 01/05/2024 12:57 PM Age: 78 years old Clinical indication: Stroke-like symptoms; Altered mental status/memory loss TECHNIQUE: Imaging protocol: Computed tomography of the head without contrast. Other technique: STROKE PROTOCOL was implemented. COMPARISON: CT HEAD WO 01/02/2024 5:33 PM FINDINGS: Tubes, catheters and devices: Right cochlear implant. Brain: Normal. No hemorrhage. Unremarkable white matter. No mass effect. Cerebral ventricles: No ventriculomegaly. Paranasal sinuses: Visualized sinuses are unremarkable. No fluid levels. Mastoid air cells: Visualized mastoid air cells are well aerated. Orbital cavities: Post bilateral cataract surgery. Bones/joints: Unremarkable. No acute fracture. Soft tissues: Unremarkable. Other findings: There is motion artifact. IMPRESSION: No large territorial infarct or intracranial bleed. ASSESSMENT: ASPECTS ([place] Stroke Program Early CT Score) is 10. Dictated and Authenticated by: Sveero Moses MD. Ordering:[facility] Karen Birmingham MD
--- NOTE | 2024-01-05 13:53 | NUR.NOTE ---
Patient did not tolerate CT well. Contrast was not given due to patient's combativeness. Angiogram remains undone. Patient will require some level of sedation to be able to tolerate angiogram.Nursing Note:
--- NOTE | 2024-01-05 13:55 | NUR.NOTE ---
Patient's PO intake is poort. Patient is not interested in eating.Nursing Note:
--- NOTE | 2024-01-05 14:58 | NUR.NOTE ---
Patient suddenly refuses to take is 14:00 Lipase pills. Same is documented as taken but actually patient refused to take them at the last minute as RN was trying to administer same. RN tried to give same to patient with water, and then with chocolate ice cream. Patient adamant he will not take said pills.Nursing Note:
--- NOTE | 2024-01-05 16:36 | W.PM.DS.N ---
Date of service: 01/05/24 Time of Service: 16:37 DS: Diagnosis Discharge Diagnosis (1) Septic shock: Status: Suspected Asessment and Plan: Patient met criteria for sepsis although not truly septic shock as the patient did not require any vasopressors although he did have some endorgan damage with acute kidney injury which has since resolved with hydration and antibiotics. (2) UTI (urinary tract infection): Status: Acute Asessment and Plan: Source of his infection is still suspected to be urologic in origin given his right ureteral stent and nephrolithiasis although his urine culture only grew Anila albicans. Patient was treated with Diflucan. Blood cultures came back no growth at 72 hours. He was initially treated with Rocephin although when his MRSA screen came back positive he was briefly on vancomycin until we ruled out any gram-positive organisms in his urine or blood. He was maintained on Rocephin 2 g IV daily throughout his hospital stay and Diflucan was added for coverage of yeast. (3) Atrial fibrillation with RVR: Status: Chronic Asessment and Plan: Atrial fibrillation was treated with IV Lopressor and when that failed he was given IV diltiazem and put on diltiazem drip which she was subsequently weaned off and put on oral diltiazem. He was maintained on his apixaban throughout his hospital stay with the exception of his first night when he was too lethargic to take any oral medications. (4) RAHEEL (acute kidney injury): Status: Acute Asessment and Plan: Patient presented with a BUN of 35 creatinine 2.0 which improved with IV hydration down to a BUN of 28 creatinine 1.6. At the time of discharge she was making over 1200 mL/day. (5) Type 2 diabetes mellitus: Status: Chronic Asessment and Plan: Blood glucose was monitored ACHS and was treated with sliding scale NovoLog. (6) CAD (coronary artery disease): Asessment and Plan: Despite the patient's initial hypotension and sepsis his troponins remain within normal limits. He never had any ischemic chest pain. (7) Parkinson disease: (8) Dysarthria: Status: Acute Asessment and Plan: Dysarthric speech was noted and reportedly was new according to the the ED provider indicated there was some history of this in the past. Serial CT scans of his head were performed and no evidence of a stroke was seen. MRI was not available and due to his implanted cochlear could not be performed. (9) Hydronephrosis concurrent with and due to calculi of kidney and ureter: Status: Acute Asessment and Plan: Despite the patient having a stent on the right he has some residual hydronephrosis. Further follow-up with urology is recommended. Discharge Plan Disposition Patient Disposition: Transfer-Acute Inpatient Care Specific Acute Inpt Facility: Other Condition: Stable Discharge Details Reason For Visit: Septic Shock Admit Date/Time: 01/02/24 19:20 Admit Provider: John Rodriguez Attending Provider: John Rodriguez Primary Care Provider: John Jhaveri Hospital Course Hospital Course: 78-year-old white male with a history of parkinsonism, diabetes mellitus type 2 L.A.M.A. coronary artery disease, atrial fibrillation chronically anticoagulated with apixaban, previous TAVR recent hospitalization at [facility][1] for pneumonia, UTI, RAHEEL with hydronephrosis of the right ureter requiring stent now presents from [facility] for altered mental status and rapid atrial fibrillation. Initial vitals shows heart rate of 140 bpm and systolic pressure is greater than 100 Developed hypotension required fluid resuscitation but never required vasopressors. Blood and urine cultures were obtained routine labs were obtained including CMP, CBC, troponin levels as well as an EKG. He had a couple liters of LR given in the emergency department. He was given IV Lopressor for the rapid atrial fibrillation prior to his blood pressure dropping. Patient underwent castro scan including CT of his head CT of the abdomen pelvis. Chest x-ray showed no acute findings. Renal CT of the abdomen and pelvis demonstrated a right ureteral stent with a 10 mm stone adjacent to the upper portion of the stent with mild right hydronephrosis as well as additional nonobstructing stones bilaterally. Rest of the abdominal pelvic CT shows no acute process gallbladder liver spleen or bowel. Bladder demonstrates Bennett catheter with no stones and no evidence of the mass. CT scan of the head was limited due to metallic artifact and motion. Implanted cochlear implant. There is no cerebral hemorrhage and no evidence of acute infarct or mass in the cerebral parenchyma. The next day of the renal ultrasound was obtained and showed right nephroureteral stent with mild persistent dilatation of the right renal collecting system and nonobstructing nephrolithiasis. Blood cultures obtained and so far have come back no growth after 72 hours as urine culture grew Anila albicans. Bennett catheter was not exchanged initially but was exchanged the subsequent day. Treatment included IV fluid resuscitation but did not require vasopressors. Patient was treated with ceftriaxone 2 g IV daily along with vancomycin which was subsequently discontinued. When urine culture came back for Anila albicans he was started on Diflucan. MRSA screen was positive for MRSA and he was given Bactroban ointment for his nose nares and fingertips. His acute encephalopathy cleared and he became more interactive with staff and family smiling and responding to simple commands. However his speech was noted to be dysarthric which according to his was a new finding. Stat CT of his head without contrast was repeated on 01-26 and showed no acute intracranial process and was similar to his admission CT scan. At the time of discharge she was moving all 4 extremities although he had significant weakness in both legs. Speech is still dysarthric but intelligible. Patient exhibited no difficulties with swallowing was able to tolerate taking his oral medications. Family was requesting transfer to the [facility] where he was providers know him including his neurologist and urologist. Our hospice care transitions coordinator reached out to the [facility] within had there hospitalist contacted me and I discussed the case with Dr. Todd who accepted the patient in transfer. During his hospital stay his atrial fibrillation with rapid rate was treated with IV diltiazem bolus and drip and on the day of discharge she was weaned off the diltiazem drip and was put on oral diltiazem although he did require an additional bolus of IV diltiazem. His metoprolol dose was adjusted. He was discharged in hemodynamically stable condition. Home Meds and New Rx's Prescriptions: No Action apixaban 5 mg tablet 5 mg PO BID carbidopa-levodopa 10-100 mg tablet 1 tab PO TID duloxetine 20 mg capsule,delayed release(DR/EC) 20 mg PO DAILY fexofenadine 60 mg tablet 60 mg PO BID finasteride 5 mg tablet 5 mg PO DAILY insulin glargine 100 unit/mL (3 mL) insulin pen 40 unit subcut DAILY isosorbide mononitrate 30 mg tablet extended release 24 hr 30 mg PO DAILY losartan 25 mg tablet 25 mg PO DAILY pregabalin 300 mg capsule 300 mg PO BID metoprolol succinate 25 mg tablet extended release 24 hr 25 mg PO DAILY amitriptyline 10 mg tablet 10 mg PO DAILY rosuvastatin [Crestor] 40 mg tablet 40 mg PO DAILY sertraline 100 mg tablet 100 mg PO DAILY tamsulosin 0.4 mg capsule 0.4 mg PO DAILY tiotropium bromide 2.5 mcg/actuation mist 2 inh inhalation DAILY Creon 24,000-76,000 -120,000 unit capsule,delayed release(DR/EC) 2 cap PO TID Rx Instructions: administer with meals and/or snacks Discharge Instructions Instructions: Sepsis (DC) Activity:: bedres Equipment/Supplies:: No Equipment Needed Diet:: Carb Counting Discharge Orders Discharge Orders: Discharge Order (Routine); Ordered 01/05/24 Ordered By: Vinnie Jones DS: Summary Time Spent with Patient providing and/or coordinating discharge services: Greater than 30 minutes Status at Discharge Functional status at discharge: bed bound Overall status at discharge: patient is progressing back to baseline Mental Status: mental status grossly normal Speech and Movement: slurred speech Mood: congruent mood Affect: normal affect Quality:SDOH Health Related Social Needs: No Data to Display Exam Psych Mental Status: mental status grossly normal Speech and Movement: slurred speech Mood: congruent mood Affect: normal affect DS: Data Vitals/I&O Vitals and I&O: Vital Signs Temperature 36 C L 01/05/24 14:46 Temperature Source Temporal Artery Scan 01/05/24 14:46 Pulse 98 H 01/05/24 14:46 Pulse 99 H 01/05/24 13:46 Respiratory Rate 14 01/05/24 14:46 Respiratory Effort Normal 01/05/24 14:46 Respiratory Depth Normal 01/05/24 14:46 Respiratory Pattern Normal 01/05/24 14:46 Blood Pressure 108/48 L 01/05/24 14:46 Blood Pressure Mean 68 01/05/24 14:46 Blood Pressure Position Supine 01/05/24 14:46 Pulse Oximetry 98 01/05/24 14:46 Oxygen Delivery Method Room Air 01/05/24 14:46 Oxygen Flow Rate 0 01/05/24 14:46 Fraction of Inspired Oxygen (FIO2) 21 01/04/24 05:50 End Tidal Co2 99 01/02/24 14:35 Pain Level 0 01/05/24 14:46 Comment pain with movement 01/02/24 14:35 Intake & Output 01/04/24 01/05/24 01/05/24 23:59 11:59 23:59 Intake Total 2310.333 / 2860.333 950 / 2050 1100 / 2050 Output Total 450 / 1150 600 / 1050 450 / 1050 Balance 1860.333 / 1710.333 350 / 1000 650 / 1000 Weight 119.8 kg Intake: IV 2210.333 / 2410.333 950 / 2000 1050 / 2000 Oral 100 / 450 50 / 50 Output: Urine 450 / 1150 600 / 1050 450 / 1050 Other: Urine Color Pale Yellow Yellow Yellow Urine Appearance Cloudy Sediment Cloudy Sediment Comment chronic bennett Patient bennett catheter putting out sufficient amounts of urine. Bennett catheter is patent and putting out sufficient amounts of yellow urine. Stool Size Large Stool Characteristics Soft Voiding Methods Indwelling Catheter Data Completed and Pending Labs on day of discharge: Labs from last 24 hours 01/05/24 05:50 WBC 15.75 H RBC 4.41 Hgb 12.0 L Hct 38.4 L MCV 87 MCH 27.2 MCHC 31.3 L RDW 14.8 H Plt Count 300 MPV 11.3 H Immature Gran % 0.7 Neutrophils % 80.0 Lymphocytes % 10.1 Monocytes % 7.2 Eosinophils % 1.6 Basophils % 0.4 Nucleated RBC % 0.0 Absolute Neutrophils 12.60 H Absolute Lymphocytes 1.59 Absolute Monocytes 1.13 H Absolute Eosinophils 0.25 Absolute Basophils 0.06 Sodium 141 Potassium 4.3 Chloride 105 Carbon Dioxide 24.8 Anion Gap 11.2 H BUN 28 H Creatinine 1.6 H Est GFR (CKD-EPI 2020) 44.10 Glucose 237 H Calcium 8.7 Total Bilirubin 0.3 AST 17 ALT 6 L Alkaline Phosphatase 152 H Total Protein 7.1 Albumin 1.8 L Procalcitonin 0.2 Preliminary micro results at discharge 01/02/24 14:30 Blood Culture - Preliminary Blood NO GROWTH 48 HOURS 01/02/24 14:28 Blood Culture - Preliminary Blood NO GROWTH 48 HOURS PFSH All Active Problems (Updated 01/05/24 @ 17:02 by Vinnie Jones MD) Hydronephrosis concurrent with and due to calculi of kidney and ureter (Acute) Dysarthria (Acute) Type 2 diabetes mellitus (Chronic) Atrial fibrillation with RVR (Chronic) UTI (urinary tract infection) (Acute) RAHEEL (acute kidney injury) (Acute) Medical History DVT (deep venous thrombosis) History of nephrolithiasis Atrial fibrillation CAD (coronary artery disease) Diabetes mellitus Parkinson disease Melanoma Surgical History S/P TAVR (transcatheter aortic valve replacement) Social History Smoking/Tobacco Use Status: Unknown Smoking risk assessment performed?: Yes Substance use type: unknown Housing: [facility] Time Spent with Patient Time Spent with Patient: 45-69 minutes Time was spent: preparing to see the patient(eg.review tests), ordering medications,tests, procedures, referring, communicating with other health infant caregiver ([facility]), indepentently interpreting results, counseling the patient and care coordination
== END 2024-01-05 16:56 | disposition short-term general hospital (02) | DRG 698 ==
LOC: ER 20:17 → ICU 20:54
PROVIDERS: Internal Medicine; Admitting Provider Family Medicine; Emergency Provider Emergency Medicine; PCP Family Medicine; Visit Provider Family Medicine
DX: A41.9 Sepsis, unspecified organism (principal); R65.21 Severe sepsis with septic shock; T83.511A Infection and inflammatory reaction due to indwelling urethral catheter, initial encounter; N17.9 Acute kidney failure, unspecified; B37.49 Other urogenital candidiasis; G93.40 Encephalopathy, unspecified; N13.6 Pyonephrosis; I48.91 Unspecified atrial fibrillation; E11.65 Type 2 diabetes mellitus with hyperglycemia; Z79.4 Long term (current) use of insulin; I25.10 Atherosclerotic heart disease of native coronary artery without angina pectoris; G20.B1 Parkinson's disease with dyskinesia, without mention of fluctuations; R47.1 Dysarthria and anarthria; Z22.322 Carrier or suspected carrier of Methicillin resistant Staphylococcus aureus; W19.XXXA Unspecified fall, initial encounter; Z66 Do not resuscitate; Z95.4 Presence of other heart-valve replacement; E66.9 Obesity, unspecified; Z68.39 Body mass index [BMI] 39.0-39.9, adult
CPT/HCPCS: 00123; 36410; 36415; 76770; 80053; 84145; 85027; 87040; 87637; 87641; 93005; 94640; 96361; 96365; 96366; 96375; 97162; 99291; 70450; 71045; 74176; 80202; 81003; 81015; 83605; 83735; 84439; 84443; 84484; 85025; 87086; 93010; 94664; 99223; 99232; 99239; J0696; J1450; J1815; J2060; J3372; J3490